=== PATIENT | male | born 1995 | race Caucasian/White ===

== ENCOUNTER 2017-06-06 23:05 | Emergency (ER) | payer OTHER ==
[~2017-06-06] VITALS: Ht 182.9 cm; Wt 77.1 kg
[2017-06-06 23:10] VITALS: BP 117/62
[2017-06-06] MEDS ORDERED: levETIRAcetam 500mg/NS100ml 100 ML IVPB ONE (23:15)
[2017-06-06 23:38] LABS: BASOPHILS % (AUTO) 0.8 % (0.0-2.0); EOSINOPHILS % (AUTO) 3.5 % (0.0-3.0); HEMATOCRIT 42.1 % (42.0-52.0); HEMOGLOBIN 14.8 G/DL (14.2-18.0); LYMPHOCYTES % (AUTO) 31.6 % (20.0-45.0); MEAN CORPUSCULAR VOLUME 93 FL (80-99); MONOCYTES % (AUTO) 4.2 % (1.0-10.0); NEUTROPHILS % (AUTO) 59.8 % (45.0-75.0); PLATELET COUNT 229 K/UL (150-450); RED BLOOD COUNT 4.54 M/UL (4.70-6.10); RED CELL DISTRIBUTION WIDTH 10.8 % (11.6-14.8); WHITE BLOOD COUNT 7.7 K/UL (4.8-10.8)
[2017-06-06 23:48] LABS: ANION GAP 10 mmol/L (5-15); BLOOD UREA NITROGEN 10 mg/dL (7-18); CALCIUM 9.1 MG/DL (8.5-10.1); CARBON DIOXIDE 23 MMOL/L (21-32); CHLORIDE 104 MMOL/L (98-107); CREATININE 1.2 MG/DL (0.55-1.30); POTASSIUM 3.6 MMOL/L (3.5-5.1); SODIUM 137 MMOL/L (136-145)
[2017-06-06] MEDS ORDERED: LIBRIUM10 MG ORAL (23:49)
--- NOTE | 2017-06-06 23:50 | Emergency Room Report ---
History of Present Illness General Chief Complaint: Seizure Source: Patient Present Illness HPI This is a 21-year-old male with history of seizures a kid. He never had any seizure for a while. He presents with chief complaint of a tonic clonic seizure activity lasting from a minute. Was witnessed by his friends. Does have tongue trauma. No incontinence of bowel or urine. Patient was postictal period. No other injury. Later, his friend told me that he normally takes 6-8 mg of Xanax a day. He cut down to 1 mg a day recently. Allergies: Coded Allergies: BACITRACIN (Verified Allergy, Unknown, 06/06/17) NEOMYCIN (Verified Allergy, Unknown, 06/06/17) POLYMYXIN B (Verified Allergy, Unknown, 06/06/17) Patient History Past Medical History: see triage record, old chart reviewed Past Surgical History: other Pertinent Family History: none Social History: Denies: smoking Immunizations: other Reviewed Nursing Documentation: PMH: Agreed, PSxH: Agreed Nursing Documentation-PMH Hx Seizures: Yes Review of Systems Eye: Denies: eye pain, blurred vision ENT: Denies: ear pain, nose congestion, throat swelling Respiratory: Denies: cough, shortness of breath Cardiovascular: Denies: chest pain, palpitations Gastrointestinal: Denies: abdominal pain, diarrhea, nausea, vomiting Musculoskeletal: Denies: back pain, joint pain Skin: Denies: rash Neurological: Denies: headache, numbness Endocrine: Denies: increased thirst, increased urine Hematologic/Lymphatic: Denies: easy bruising All Other Systems: negative except mentioned in HPI Physical Exam Vital Signs Date Time Temp Pulse Resp B/P (MAP) Pulse Ox O2 Delivery O2 Flow Rate FiO2 06/06/17 22:48 97.9 120 18 117/62 99 Room Air vitals with tachycardia Sp02 EP Interpretation: reviewed, normal General Appearance: well appearing, no apparent distress, alert Head: normocephalic, atraumatic Eyes: bilateral eye PERRL, bilateral eye EOMI ENT: hearing grossly normal, normal pharynx, other - Mild tongue abrasion to the tip. Neck: full range of motion, supple, no meningismus Respiratory: chest non-tender, lungs clear, normal breath sounds Cardiovascular #1: regular rate, rhythm, no murmur Gastrointestinal: normal bowel sounds, non tender, no mass, no organomegaly, no bruit, non-distended Musculoskeletal: back normal, gait/station normal, normal range of motion Psychiatric: mood/affect normal Skin: warm/dry Medical Decision Making Diagnostic Impression: Primary Impression: Epileptic seizure, generalized Additional Impression: Benzodiazepine abuse ER Course Patient presents with a seizure. This is most likely secondary to benzo withdrawal. According to patient he never had a seizure that he knew of before. Herniated him a dose of Keppra here. Will hold off any prescription for it. Because of this is a new seizure activity, will get CAT scan and lab work done. I will fill out a DMV report. I told patient he cannot drive because of his seizure. Discharge home if everything is normal. CT/MRI/US Diagnostic Results CT/MRI/US Diagnostic Results : Imaging Test Ordered: CT head Impression negative per radiologist Last Vital Signs Date Time Temp Pulse Resp B/P (MAP) Pulse Ox O2 Delivery O2 Flow Rate FiO2 06/06/17 22:48 97.9 120 18 117/62 99 Room Air Status: improved Disposition: HOME, SELF-CARE Condition: Stable Scripts Chlordiazepoxide Hcl* (LIBRIUM*) 10 Mg Capsule 10 MG ORAL DAILY, #7 CAP 0 Refills Prov: NEREYDA SIMON M.D. 06/06/17 Patient Instructions: Seizure, Adult Additional Instructions: Followup with your DrCb in [address] or operate heavy machinery because of the new onset seizure. You have to be cleared by a neurologist. Return if symptom worsen. NEREYDA SIMON M.D. Jun 06, 2017 23:50
[2017-06-07 00:30] VITALS: BP 118/68
[2017-06-07 00:40] VITALS: BP 118/68
--- NOTE | 2017-06-07 10:18 | Diagnostic Imaging Report ---
Indication: Seizure Technique: Contiguous 5 mm thick transaxial imaging of the head obtained in a Siemens Sensation [address] scanner. Soft tissue and bone windows generated. Automatic Exposure Control was utilized. Total Dose length Product (DLP): 1439.[address] Dose Index Volume (CTDIvol): 70.38 mGy Comparison: none Findings: The size and configuration of the cortical sulci, basal cisterns, and ventricles are within normal limits for age. There is no mass effect, midline shift, or edema identified. There is no evidence of acute hemorrhage or abnormal intra-axial or extra-axial fluid collections. The bones and soft tissues are unremarkable. Impression: No mass effect, edema or acute bleed. [facility] has communicated the preliminary results to the Emergency Department. Their findings are largely concordant with this report. The CT scanner at [facility] is accredited by the [employer] and the scans are performed using dose optimization techniques as appropriate to a performed exam including Automatic Exposure control.
== END 2017-06-07 00:40 | disposition home or self-care (01) ==
LOC: EDBD 23:05 → EMR 23:10
DX: G40.409 Other generalized epilepsy and epileptic syndromes, not intractable, without status epilepticus (principal); F13.10 Sedative, hypnotic or anxiolytic abuse, uncomplicated; Z88.1 Allergy status to other antibiotic agents
CPT/HCPCS: 36415; 70450; 80048; 85025; 96374; 99284; G0480; J1953; 80329